=== PATIENT | male | born 1980 | race Two or more races ===

== ENCOUNTER 2024-09-10 08:07 | Emergency (ER) | payer SELFPAY ==
[2024-09-10] MEDS ORDERED: Sodium Chloride 0.9% 2.5 ML Syringe FLUSH PRN (08:13)
[2024-09-10] MEDS: Sodium Chloride 0.9% 10 ML Syringe FLUSH PRN (08:23)
[2024-09-10] MEDS: Sodium Chloride 0.9% 1,000 ML IV ONE ×2 (08:23→10:37)
[2024-09-10] MEDS: Ondansetron 4 MG/2 ML SDV IVPUSH ONE (08:23)
[2024-09-10 08:25] LABS: HEMATOCRIT 47.9 % (42.0-52.0); HEMOGLOBIN 17.4 g/dL (14.0-18.0); MEAN CORPUSCULAR HEMOGLOBIN 30.1 pg (28.0-32.0); MEAN CORPUSCULAR HGB CONC 36.3 g/dL (32.0-36.0); MEAN CORPUSCULAR VOLUME 82.7 fL (83.0-99.0); MEAN PLATELET VOLUME 10.4 fL (9.4-12.4); PLATELET COUNT,PLT 292 K/uL (150-400); RED BLOOD CELL COUNT 5.79 M/uL (4.52-5.90); WHITE BLOOD CELL COUNT,WBC 15.81 K/uL (3.9-11.3)
[2024-09-10] MEDS ORDERED: Naloxone 0.4 MG/ML SDV IVPUSH PRN (08:35)
[2024-09-10 08:42] LABS: LYMPHOCYTES ABSOLUTE MAN 9.33 K/uL (1.00-4.80); LYMPHOCYTES PERCENT MAN 59 % (24-44); MONOCYTES ABSOLUTE MAN 0.79 K/uL (0.00-0.80); MONOCYTES PERCENT MAN 5 % (0-8); SEG NEUTROPHILS ABSOLUTE MAN 5.53 K/uL (1.80-7.70); SEG NEUTROPHILS PERCENT MAN 35 % (41-71)
[2024-09-10 08:43] LABS: MYELOCYTE ABSOLUTE MAN 0.16; MYELOCYTE PERCENT MAN 1 %
[2024-09-10 08:47] LABS: A/G RATIO 1.3 (0.9-1.6); ALANINE AMINOTRANSFERASE,ALT 96 IU/L (14-63); ALKALINE PHOSPHATASE 78 U/L (46-116); ASPARTATE AMNIOTRANSFERASE,AST 34 IU/L (15-37); BILIRUBIN TOTAL 0.7 mg/dL (0.2-1.0); BLOOD UREA NITROGEN,BUN 16 mg/dL (7.0-18.0); CALCIUM 8.8 mg/dL (8.5-10.1); CARBON DIOXIDE,CO2 24.8 mmol/L (21.0-32.0); CHLORIDE,CL 104 mmol/L (98-107); CREATININE 1.3 mg/dL (0.8-1.3); EST CRCL DRUG DOSING (CG) 74.02 mL/min; ETHANOL BLOOD MEDICAL <3 mg/dL; GLUCOSE RANDOM 167 mg/dL (74-106); LIPASE 33 U/L (16-77); POTASSIUM,K 3.6 mmol/L (3.5-5.1); PROTEIN TOTAL,TP 7.2 g/dL (6.4-8.2); SODIUM,NA 141 mmol/L (136-148)
[2024-09-10] MEDS: Ketorolac 30 MG/ML SDV IVPUSH ONE (08:47)
[2024-09-10] MEDS: Morphine 4 MG/ML Syringe IVPUSH ONE ×2 (08:47→09:28)
[2024-09-10 08:54] LABS: ESTIMATED GFR 70 mL/min (>60)
[2024-09-10] MEDS: Iopamidol 755 MG/ML 500 ML Multipack Bottle IVPUSH STA (09:23)
[2024-09-10 09:47] LABS: APPEARANCE,URINE CLEAR; BILIRUBIN,URINE NEGATIVE (NEGATIVE); COLOR,URINE YELLOW; GLUCOSE,URINE NEGATIVE (NEGATIVE); KETONES,URINE NEGATIVE (NEGATIVE); LEUKOCYTE ESTERASE,URINE NEGATIVE (NEGATIVE); NITRITE,URINE NEGATIVE (NEGATIVE); OCCULT BLOOD,URINE MODERATE (NEGATIVE); PROTEIN,URINE NEGATIVE (NEGATIVE); UROBILINOGEN,URINE 0.2 EU/dL (<2.0)
[2024-09-10] MEDS ORDERED: 50% Dextrose in Water 50 ML Syringe IVPUSH PRN (09:47)
[2024-09-10] MEDS ORDERED: Glucagon,Human Recombinant 1 MG Vial IM PRN (09:47)
[2024-09-10] MEDS ORDERED: Insulin Regular, Human 100 Units/ML 10 ML Vial IVPUSH ONE (09:47)
[2024-09-10 09:53] LABS: BACTERIA,URINE FEW (NEGATIVE); EPITHELIAL CELLS,URINE NOT SEEN (NONE-FEW); MUCUS,URINE LIGHT (NONE-MOD); WBC,URINE 0-1 (0-5/HPF)
== END 2024-09-10 12:23 | disposition home or self-care (01) ==
LOC: MW.ED 08:07
DX: N13.2 Hydronephrosis with renal and ureteral calculous obstruction (principal); Z79.899 Other long term (current) drug therapy; Z75.8 Other problems related to medical facilities and other health care
CPT/HCPCS: 36415; 74178; 80053; 80307; 81001; 83690; 85025; 87086; 96361; 96374; 96375; 96376; 99284; J1885; J2270; J2405; J3490; J7030; Q9967